=== PATIENT | female | born 2000 | race Caucasian/White ===

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

== ENCOUNTER 2018-07-09 07:20 | Day surgery (SDC) | payer BC ==
[~2018-07-09] VITALS: Ht 170.2 cm; Wt 70.8 kg
[~2018-07-09 07:20] MED LIST: GIAN1TAB PO; TRAM50TA2 PO; ZOFR4TAB16 PO
[2018-07-09] MEDS ORDERED: ONDANSETRON 4MG/2ML VIAL (J2405) As Ordered ONE (07:49)
[2018-07-09] MEDS ORDERED: fentaNYL 100 MCG/2 ML INJECTION (J3010) As Ordered ONE (07:49)
[2018-07-09] MEDS ORDERED: dexameTHASONE 4 MG/ML 1ML VIAL (J1100) As Ordered ONE (07:49)
[2018-07-09] MEDS ORDERED: NEOSTIGMINE 10 MG/10 ML VIAL (J2710) As Ordered ONE (07:49)
[2018-07-09] MEDS ORDERED: PROPOFOL 200 MG/20 ML VIAL As Ordered ONE (07:49)
[2018-07-09] MEDS ORDERED: GLYCOPYRROLATE INJ 0.2 MG/ML 2 ML VIAL As Ordered ONE (07:49)
[2018-07-09] MEDS ORDERED: MIDAZOLAM INJ 2 MG/2 ML VIAL (J2250) As Ordered ONE (07:49)
[2018-07-09] MEDS ORDERED: LIDOCAINE 2% INJ 100 MG/5 ML SDV (FOR ANES.) As Ordered ONE (07:49)
[2018-07-09] MEDS ORDERED: ROCURONIUM BROMIDE 50 MG/5 ML VIAL As Ordered ONE (07:49)
[2018-07-09 07:57] LABS: HEMOGLOBIN 13.2 g/dl (12.0-15.5); MEAN CORPUSCULAR HEMOGLOBIN 27.8 pg (27.0-33.0); MEAN CORPUSCULAR VOLUME 84.2 fl (80.0-96.0); PLATELET COUNT, AUTOMATED 244 10^3/uL (150-450); RED BLOOD COUNT 4.75 10^6/uL (4.00-5.40); WHITE BLOOD COUNT 3.8 10^3/uL (4.0-10.0)
[2018-07-09] MEDS ORDERED: LR 1,000 ML IV ONE (08:00)
[2018-07-09] MEDS ORDERED: BUPIVACAINE HCL 0.25% 30 ML VIAL As Ordered ONE (08:23)
[2018-07-09 08:45] LABS: HCG, SERUM QUALITATIVE NEGATIVE (NEGATIVE)
[2018-07-09] MEDS: HYDROMORPHONE HCL 0.5 MG/ 0.5 ML SYRINGE (J1170 PER 1) IV PRN ×3 (10:15→10:55)
[2018-07-09] MEDS ORDERED: HYDROMORPHONE HCL 0.5 MG/ 0.5 ML SYRINGE (J1170 PER 1) As Ordered ONE (10:16)
[2018-07-09] MEDS: fentaNYL 100 MCG/2 ML INJECTION (J3010) IV PRN ×4 (10:20→10:35)
[2018-07-09] MEDS ORDERED: KETOROLAC 30 MG/ML VIAL (J1885) As Ordered ONE (10:28)
[2018-07-09] MEDS ORDERED: PERCOCET 5MG/325MG TAB PO PRN (10:45)
[2018-07-09 12:20] VITALS: BP 133/70
[2018-07-09] MEDS ORDERED: PERCOCET PO (12:20)
[2018-07-09] MEDS ORDERED: IBUP1TAB7 PO (12:24)
[2018-07-09] MEDS ORDERED: KETOROLAC 30 MG/ML VIAL (J1885) IV SCH (17:00)
--- NOTE | 2018-07-10 11:40 | RO ---
DATE OF PROCEDURE: 07/09/2018 PREOPERATIVE DIAGNOSIS: Left dermoid cyst. POSTOPERATIVE DIAGNOSIS: Left dermoid cyst. PROCEDURE: Laparoscopic diagnostic operative laparoscopy with left ovarian cystectomy. SURGEON: Beatrice Mcqueen MD MECHANICAL SPREADER OPERATOR: Dr. Bebeto Dos Santos. ANESTHESIA: General SPECIMEN: Left ovarian dermoid cyst. URINE OUTPUT: 50 mL. ESTIMATED BLOOD LOSS: 5 mL. INTRAVENOUS FLUIDS: 600 mL of lactated Ringer solution. PREOPERATIVE ANTIBIOTICS: None. INFECTION CLASSIFICATION: 1. OPERATIVE FINDINGS: The patient had an approximately 5 cm left dermoid cyst. Otherwise normal pelvic anatomy including uterus, right adnexa. Appendix was visualized and appeared to be normal. Normal appearing liver edge. DESCRIPTION OF OPERATION: After informed consent was obtained and written content was reviewed, the patient was brought to the operating room where general endotracheal anesthesia was obtained. She was then placed in lithotomy position and was prepped and draped in a normal sterile fashion. A time out in the operating room was then performed identifying the patient, the procedure to be performed, as well as drug allergies. A bivalved speculum was then placed revealing the cervix. The anterior lip of the cervix was grasped with a single toothed tenaculum. A Hulka tenaculum was advanced through the cervical os for means to manipulate the uterus. The single tooth tenaculum as well as the speculum was removed. A Paulino catheter was in place and set to gravity. Gloves were changed. Attention was turned to the patient's abdomen. The umbilical region was infused with 0.25% Marcaine. An incision was made in this area. A 11 mm trocar and sleeve was advanced. The laparoscope was then replaced revealing intra-abdominal placement. The pneumoperitoneum was then obtained with CO2 gas. Two additional port sites were placed, to left and right side of the patient's abdomen. These areas were infused with 0.25% Marcaine. Incision was made in each one of these areas and 5 mm trocars and sleeves were advanced through each one of these incisions under direct visualization. The abdomen was then surveyed with the above noted findings. Next, using a harmonic scalpel device, the left ovarian wall was then opened. This was further dissected out. I was able to peel out the left dermoid intact with counter traction. This was placed in an Endo Catch bag and this was removed intact. The surgical sites were then inspected. The abdomen was then irrigated and suctioned. Tunde was applied on the left ovary with hemostasis noted. Instruments were then removed from the patient's abdomen. The pneumoperitoneum was then released. The medical port site fascial incision was closed with #0 Vicryl. All three skin incisions were closed with #4-0 Monocryl and dressed with Dermabond. Paulino catheter was removed as well as Hulka tenaculum. Tenaculum sites inspected and noted to be hemostatic. The patient was then taken out of lithotomy position, was awakened from general anesthesia and taken to recovery in stable condition. Dr. Dos Santos, my surgical coordinator, played an essential role during surgery. He assisted with tissue identification, retraction, as well as, assisting with the laparoscopic cystectomy and wound closure. JUAN
== END 2018-07-09 12:40 | disposition home or self-care (01) ==
LOC: M SDC 07:20
PROVIDERS: ATTEND Obstetrics & Gynecology
DX: D27.1 Benign neoplasm of left ovary (principal); Z79.899 Other long term (current) drug therapy
CPT/HCPCS: 36415; 58662; 84703; 85027; 86850; 86900; 86901; 88304; J1100; J1170; J1885; J2250; J2405; J2710; J3010

== ENCOUNTER → 2018-10-28 | Outpatient (REF) | payer BC ==
[~2018-10-28] MED LIST changes: +IBUP1TAB7 PO; +PERCOCET PO
== END ==
LOC: M LAB REF 12:39
PROVIDERS: ATTEND Physician Assistant
DX: J02.9 Acute pharyngitis, unspecified (principal)

== ENCOUNTER → 2019-01-13 | Outpatient (CLI) | payer BC ==
--- NOTE | 2019-01-13 11:55 | REP ---
Pelvic sonography: History: History of dermoid cysts and ovarian cysts. Abnormal bleeding. Findings: Transabdominal and transvaginal scanning are performed. Uterus measures 7.1 x 3.3 x 4.0 cm. Endometrial echo is 0.5 cm thick. No focal uterine masses are seen. There is no evidence of free fluid. Visualized bladder farias are smooth. Right ovary measures 4.9 x 3.5 x 2.5 cm. Its Doppler flow is normal with resistive index 0.51. There is a 3.0 x 1.9 x 2.2 cm hyperechoic lesion in or adjacent to the right ovary consistent with a complex predominantly solid mass. The left ovary measures 3.8 x 2.0 x 3.3 cm. It contains a 2.2 x 1.5 x 2.1 cm complex hypoechoic area as well. Doppler flow to the left ovary is normal, resistive index 0.57. Impression: Complex predominately solid lesions affecting each ovary, 3.0 cm on the right and 2.2 cm in greatest dimension on the left. Electronically Signed by Joesph Agee MD 01/13/2019 05:29 P
== END ==
LOC: M RAD 08:26
PROVIDERS: ATTEND Obstetrics & Gynecology
DX: N83.209 Unspecified ovarian cyst, unspecified side (principal)

== ENCOUNTER → 2019-11-09 | Outpatient (CLI) | payer BC | LOC: M WHC 11:39 | PROVIDERS: ATTEND Obstetrics & Gynecology | DX: D27.0 Benign neoplasm of right ovary (principal); Z53.9 Procedure and treatment not carried out, unspecified reason ==

== ENCOUNTER → 2019-11-10 | Outpatient (CLI) | payer BC ==
--- NOTE | 2019-11-11 03:56 | REP ---
Clinical: History of right ovarian dermoid cyst. Technique: Transabdominal pelvic ultrasound followed by transvaginal examination for better evaluation of the endometrium and adnexa with color Doppler evaluation of the ovaries. Comparison: 01/13/2019 Findings: Bladder is partially collapsed. Anteverted uterus measures 7.8 x 3.1 x 4.3 cm. Endometrial complex measures 5.4 mm thickness. Bilateral ovaries are normal in vascularity without torsion. Right ovary measures 5.0 x 3.1 x 3.5 cm (RI 0.49) and includes stable complex mass measuring 3.3 x 2.9 x 2.7 cm containing calcifications with posterior shadowing. Left ovary measures 3.2 x 2.1 x 3.6 cm (RI 0.59) and includes 1.1 x 1.0 x 0.8 cm hypoechoic lesion with central calcification. No pelvic fluid or adnexal mass lesion. 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
== END ==
LOC: M WHC 15:50
PROVIDERS: ATTEND Obstetrics & Gynecology
DX: D28.2 Benign neoplasm of uterine tubes and ligaments (principal)

== ENCOUNTER 2020-01-02 12:23 | Day surgery (SDC) | payer BC ==
[~2020-01-02 12:23] MED LIST changes: +BUPIVACAINE HCL 0.25% 30ML VIAL As Ordered ONE
[2020-01-02] MEDS ORDERED: fentaNYL 250 MCG/5 ML INJECTION (J3010) As Ordered ONE (13:02)
[2020-01-02] MEDS ORDERED: propofoL 200 MG/20 ML VIAL As Ordered ONE ×2 (13:02→14:27)
[2020-01-02] MEDS ORDERED: MIDAZOLAM INJ 2MG/2ML VIAL (J2250 PER 1MG) As Ordered ONE (13:02)
[2020-01-02] MEDS ORDERED: ROCURONIUM BROMIDE 50 MG/5 ML VIAL As Ordered ONE (13:02)
[2020-01-02] MEDS ORDERED: LIDOCAINE 2% 100MG/5ML SDV (FOR ANES.) As Ordered ONE (13:02)
[2020-01-02] MEDS ORDERED: dexameTHASONE 4 MG/ML 1ML VIAL (J1100 PER 1MG) As Ordered ONE (14:51)
[2020-01-02] MEDS ORDERED: METOCLOPRAMIDE INJ 10MG/2ML VIAL (J2765 PER 1) As Ordered ONE (14:51)
[2020-01-02] MEDS ORDERED: ONDANSETRON 4MG/2ML VIAL As Ordered ONE ×2 (14:51→19:38)
[2020-01-02] MEDS ORDERED: ePHEDrine SULFATE 25 MG/5 ML(5MG/ML) SYRINGE As Ordered ONE (18:25)
[2020-01-02] MEDS ORDERED: PHENYLephrine HCL 500 MCG/5 ML (100MCG/ML) SYRINGE (J2370) As Ordered ONE (18:25)
[2020-01-02] MEDS ORDERED: SUGAMMADEX SODIUM 500 MG/5 ML VIAL (BRIDION) As Ordered ONE (18:28)
[2020-01-02] MEDS ORDERED: KETOROLAC 30 MG/ML 1ML VIAL As Ordered ONE (19:38)
[2020-01-02] MEDS ORDERED: fentaNYL 100 MCG/2 ML INJECTION (J3010) As Ordered ONE (19:38)
[2020-01-02] MEDS ORDERED: oxyCODONE 5MG TAB As Ordered ONE ×2 (19:38→20:04)
[2020-01-02] MEDS ORDERED: HYDROMORPHONE HCL 0.5 MG/ 0.5 ML SYRINGE (J1170 PER 1) As Ordered ONE (20:04)
[2020-02-21 17:20] LABS: HEMATOCRIT 41.6 % (36.0-47.0); HEMOGLOBIN 13.8 g/dl (12.0-15.5); MEAN CORPUSCULAR HEMOGLOBIN 28.8 pg (27.0-33.0); MEAN CORPUSCULAR HGB CONC 33.2 g/dl (32.0-36.5); MEAN CORPUSCULAR VOLUME 86.7 fl (80.0-96.0); PLATELET COUNT, AUTOMATED 302 10^3/uL (150-450); WHITE BLOOD COUNT 6.8 10^3/uL (4.0-10.0)
== END 2020-01-02 21:45 | disposition home or self-care (01) ==
LOC: M SDC 12:23
PROVIDERS: ATTEND Obstetrics & Gynecology
DX: N83.291 Other ovarian cyst, right side (principal); D27.0 Benign neoplasm of right ovary
CPT/HCPCS: 58662; 84703; 85027; 86850; 86900; 86901; 88305; J1100; J1170; J1885; J2250; J2370; J2405; J2765; J3010; U0002